=== PATIENT | female | born 1955 | race Caucasian/White ===

== ENCOUNTER 2020-07-21 23:43 | Observation (INO) ==
[2020-07-22] MEDS ORDERED: Perflutren Lipid Microsphere 1.3 ML in 0.9 % Sodium Chloride 8.7 ML IVP PRN (04:01)
[2020-07-22] MEDS ORDERED: Ondansetron 4 MG/2 ML VIAL IVP PRN (04:10)
[2020-07-22] MEDS ORDERED: Naloxone 0.4 MG/ML INJ IVP PRN (04:10)
[2020-07-22] MEDS ORDERED: Dextrose Gel 15 GM/37.5 ML TUBE PO PRN ×2 (04:22)
[2020-07-22] MEDS ORDERED: *HR* Dextrose 50 % in Water (Vial) 50 ML VIAL IVP PRN (04:22)
[2020-07-22] MEDS ORDERED: D5% in Water 1,000 ML IVC PRN (04:22)
[2020-07-22] MEDS: carBAMazepine 200 MG TABLET PO SCH ×3 (05:11→21:00)
[2020-07-22] MEDS ORDERED: *HR* Metoprolol 5 MG/5 ML VIAL IVP PRN (05:32)
[2020-07-22] MEDS: Aspirin 81 MG TAB.CHEW PO SCH (07:52)
[2020-07-22] MEDS: Divalproex (12 HR) 500 MG TABLET PO SCH ×2 (07:52→19:40)
[2020-07-22] MEDS: Acetaminophen 325 MG TABLET PO PRN ×2 (08:00→19:40)
[2020-07-22 08:19] LABS: Basophils % 0.4 %; Eosinophils # 0.2 K/mcL (0.0-0.6); Eosinophils % 2.1 %; Hematocrit 41.7 % (35.3-44.9); Hemoglobin 13.4 g/dL (11.5-15.4); Immature Granulocytes % 0.3 % (0-4); Lymphocytes # 2.6 K/mcL (0.6-4.6); Lymphocytes % 35.5 %; Mean Corpuscular HGB Conc 32.1 g/dL (31.6-35.5); Mean Corpuscular Hemoglobin 32.8 pg (28.0-33.3); Mean Platelet Volume 9.2 fL (9.4-12.4); Monocytes # 0.6 K/mcL (0.0-1.3); Monocytes % 8.2 %; Neutrophils # 3.9 K/mcL (1.6-8.9); Platelet Count 157 K/mcL (140-400); Red Blood Count 4.09 M/mcL (3.82-4.97); Red Cell Distribution Width 12.1 % (11.5-14.5); Segmented Neutrophils % 53.5 %; White Blood Count 7.2 K/mcL (4.3-11.1)
[2020-07-22 08:40] LABS: BUN/Creatinine Ratio 36 (6-26); Blood Urea Nitrogen 19 mg/dL (8-23); Carbon Dioxide 30 mEq/L (23-29); Chloride 102 mEq/L (98-107); Chol/HDL Ratio 3.9 (0-4.9); Cholesterol 154 mg/dL (< 200); Glucose 120 mg/dL (70-105); HDL Cholesterol 40 mg/dL (40-59); LDL Cholesterol,Calculated 91 mg/dL (< 100); Osmolality,Calculated 295 (280-300); Potassium 3.2 mEq/L (3.5-5.1); Sodium 141 mEq/L (136-145); Triglycerides 117 mg/dL (< 150); Troponin I < 0.03 ng/mL (< 0.04); eGFR For African Americans > 60 (> 60); eGFR For Non-African Americans > 60 (> 60)
[2020-07-22 14:29] LABS: Estimated Average Glucose 97 mg/dl
[2020-07-22] MEDS: *HR* Heparin 5,000 UNIT/ML VIAL SQ SCH (18:01)
[2020-07-22] MEDS: Insulin LISPRO 300 UNITS/3 ML VIAL SUBQ SCH (20:22)
[2020-07-23 01:27] LABS: Basophils % 0.5 %; Eosinophils # 0.2 K/mcL (0.0-0.6); Eosinophils % 3.5 %; Hematocrit 41.1 % (35.3-44.9); Hemoglobin 13.1 g/dL (11.5-15.4); Immature Granulocytes % 0.3 % (0-4); Lymphocytes # 2.5 K/mcL (0.6-4.6); Lymphocytes % 40.7 %; Mean Corpuscular HGB Conc 31.9 g/dL (31.6-35.5); Mean Corpuscular Hemoglobin 32.2 pg (28.0-33.3); Monocytes # 0.6 K/mcL (0.0-1.3); Monocytes % 9.9 %; Neutrophils # 2.7 K/mcL (1.6-8.9); Platelet Count 157 K/mcL (140-400); Red Blood Count 4.07 M/mcL (3.82-4.97); Red Cell Distribution Width 12.1 % (11.5-14.5); Segmented Neutrophils % 45.1 %; White Blood Count 6.1 K/mcL (4.3-11.1)
[2020-07-23 01:49] LABS: Estimated Average Glucose 97 mg/dl; Magnesium 1.6 mg/dL (1.6-2.6); Phosphorous 3.7 mg/dL (2.7-4.5)
[2020-07-23 01:52] LABS: BUN/Creatinine Ratio 51 (6-26); Blood Urea Nitrogen 29 mg/dL (8-23); Calcium 8.8 mg/dL (8.6-10.3); Carbon Dioxide 26 mEq/L (23-29); Chloride 103 mEq/L (98-107); Glucose 115 mg/dL (70-105); Osmolality,Calculated 291 (280-300); Potassium 3.8 mEq/L (3.5-5.1); Sodium 137 mEq/L (136-145); Troponin I < 0.03 ng/mL (< 0.04); eGFR For African Americans > 60 (> 60); eGFR For Non-African Americans > 60 (> 60)
[2020-07-23 02:11] LABS: Folate 3.2 ng/mL (3.0-16.0)
[2020-07-23] MEDS: carBAMazepine 200 MG TABLET PO SCH ×3 (04:56→20:10)
[2020-07-23] MEDS: *HR* Heparin 5,000 UNIT/ML VIAL SQ SCH ×2 (04:56→16:28)
[2020-07-23] MEDS: Aspirin 81 MG TAB.CHEW PO SCH (07:53)
[2020-07-23] MEDS: Divalproex (12 HR) 500 MG TABLET PO SCH ×2 (07:53→20:10)
[2020-07-23] MEDS: Insulin LISPRO 300 UNITS/3 ML VIAL SUBQ SCH (20:08)
[2020-07-24] MEDS: Albuterol 2.5 MG/3 ML NEBULIZER IH PRN ×2 (00:33→19:23)
[2020-07-24] MEDS: Acetaminophen 325 MG TABLET PO PRN ×2 (01:40→23:29)
[2020-07-24] MEDS: carBAMazepine 200 MG TABLET PO SCH ×3 (05:03→20:08)
[2020-07-24] MEDS: *HR* Heparin 5,000 UNIT/ML VIAL SQ SCH ×2 (05:03→17:07)
[2020-07-24] MEDS: Aspirin 81 MG TAB.CHEW PO SCH (07:28)
[2020-07-24] MEDS: Divalproex (12 HR) 500 MG TABLET PO SCH ×2 (07:28→20:08)
[2020-07-25] MEDS: carBAMazepine 200 MG TABLET PO SCH ×3 (05:06→21:25)
[2020-07-25] MEDS: *HR* Heparin 5,000 UNIT/ML VIAL SQ SCH ×2 (05:07→17:53)
[2020-07-25] MEDS: Acetaminophen 325 MG TABLET PO PRN ×2 (06:04→17:52)
[2020-07-25] MEDS: Divalproex (12 HR) 500 MG TABLET PO SCH ×2 (09:02→21:24)
[2020-07-25] MEDS: Aspirin 81 MG TAB.CHEW PO SCH (09:02)
[2020-07-26] MEDS: *HR* Heparin 5,000 UNIT/ML VIAL SQ SCH ×2 (05:54→16:49)
[2020-07-26] MEDS: carBAMazepine 200 MG TABLET PO SCH ×3 (05:54→21:14)
[2020-07-26] MEDS: Albuterol 2.5 MG/3 ML NEBULIZER IH PRN (06:26)
[2020-07-26] MEDS: Aspirin 81 MG TAB.CHEW PO SCH (07:32)
[2020-07-26] MEDS: Divalproex (12 HR) 500 MG TABLET PO SCH ×2 (07:32→20:18)
[2020-07-26] MEDS: amLODIPine 5 MG TABLET PO SCH (16:49)
[2020-07-26] MEDS: Acetaminophen 325 MG TABLET PO PRN (23:39)
[2020-07-27] MEDS: *HR* Heparin 5,000 UNIT/ML VIAL SQ SCH (06:03)
[2020-07-27] MEDS: carBAMazepine 200 MG TABLET PO SCH (06:03)
[2020-07-27] MEDS: Aspirin 81 MG TAB.CHEW PO SCH (07:55)
[2020-07-27] MEDS: Divalproex (12 HR) 500 MG TABLET PO SCH (07:55)
[2020-07-27] MEDS: amLODIPine 5 MG TABLET PO SCH (07:55)
[2020-07-27 10:38] VITALS: BP 123/70
[2020-07-27 12:32] LABS: Adenovirus Not Detected (Not Detect); Bordetella Pertussis Not Detected (Not Detect); Chlamydophila pneumoniae Not Detected (Not Detect); Coronavirus 229E Not Detected (Not Detect); Coronavirus HKU1 Not Detected (Not Detect); Coronavirus NL63 Not Detected (Not Detect); Coronavirus OC43 Not Detected (Not Detect); Human Metapneumovirus Not Detected (Not Detect); Human Rhinovirus/Enterovirus Not Detected (Not Detect); Influenza A Subtype 2009 H1 Not Detected (Not Detect); Influenza B Not Detected (Not Detect); Mycoplasma pneumoniae Not Detected (Not Detect); Parainfluenza Virus 1 Not Detected (Not Detect); Parainfluenza Virus 2 Not Detected (Not Detect); Parainfluenza Virus 3 Not Detected (Not Detect); Parainfluenza Virus 4 Not Detected (Not Detect); Respiratory Syncytial Virus Not Detected (Not Detect); SARS-CoV-2 Not Detected (Not Detect)
== END 2020-07-27 14:09 ==
LOC: 3BNU → SUATTDRO 07-22 02:53
PROVIDERS: ADMIT Family Medicine; ATTEND Nurse Practitioner